=== PATIENT | female | born 1955 | race Caucasian/White ===

== ENCOUNTER 2017-06-27 10:55 | Day surgery (SDC) | payer BC, OTHER ==
[~2017-06-27] VITALS: Ht 162.6 cm; Wt 73.9 kg
[~2017-06-27 10:55] MED LIST: CALC500T49 PO; LEXA1TAB PO; PROBCAP4 PO; SIMV40TA2 PO; VITA200015 PO
[2017-06-27] MEDS ORDERED: LR 1,000 ML IV ONE (11:00)
[2017-06-27] MEDS ORDERED: dexameTHASONE 4 MG/ML 1ML VIAL (J1100) IV ONE (11:30)
[2017-06-27] MEDS ORDERED: AMPICILLIN SOD/SULBACTAM SOD 3 GM in D5W MINI-BAG PLUS 100 ML IV ONE (11:30)
[2017-06-27] MEDS ORDERED: MIDAZOLAM INJ 2 MG/2 ML VIAL (J2250) As Ordered ONE (13:53)
[2017-06-27] MEDS ORDERED: LIDOCAINE 2% W/ EPINEPHRINE 1.7 ML DENTAL INJ As Ordered ONE (13:53)
[2017-06-27] MEDS ORDERED: fentaNYL 100 MCG/2 ML INJECTION (J3010) As Ordered ONE (13:53)
[2017-06-27] MEDS ORDERED: CHLORHEXIDINE GLUCONATE 0.12 % 15ML UDC (PERIDEX ORAL RINSE) As Ordered ONE (14:45)
[2017-06-27] MEDS ORDERED: PHENYLephrine HCL 500 MCG/5 ML (100MCG/ML) SYRINGE (J2370) As Ordered ONE (14:48)
[2017-06-27] MEDS ORDERED: PROPOFOL 200 MG/20 ML VIAL As Ordered ONE (15:10)
[2017-06-27] MEDS ORDERED: LIDOCAINE 2% INJ 100 MG/5 ML SDV (FOR ANES.) As Ordered ONE (15:10)
[2017-06-27] MEDS ORDERED: ROCURONIUM BROMIDE 50 MG/5 ML VIAL As Ordered ONE (15:10)
[2017-06-27] MEDS ORDERED: fentaNYL 100 MCG/2 ML INJECTION (J3010) IV PRN (15:45)
[2017-06-27] MEDS ORDERED: ONDANSETRON 4MG/2ML VIAL (J2405) IV PRN (15:45)
[2017-06-27] MEDS ORDERED: LR 1,000 ML IV SCH (15:45)
[2017-06-27 17:15] VITALS: BP 125/59
--- NOTE | 2017-06-28 07:06 | RO ---
DATE OF PROCEDURE: 06/27/2017 PREPROCEDURE DIAGNOSES: 1. Left chronic maxillary sinusitis. 2. Chronic left oral antral fistula. POSTPROCEDURE DIAGNOSES: Status post: 1. Left chronic maxillary sinusitis. 2. Chronic left oral antral fistula. PROCEDURE: Closure of left chronic oral antral fistula with buccal fat pad advancement and buccal gingival flap advancement. SURGEON: Vaughn Heath DMD, MD ACCOUNTING RECRUITER: ANESTHESIA: General endotracheal anesthesia via nasal ray. SPECIMEN: None. ESTIMATED BLOOD LOSS: INDICATIONS FOR SURGERY: Annia is a pleasant 62-year-old female who was referred to my office for evaluation and management of a chronic left oral antral fistula. She reports that in 2013, she had a left maxillary sinus augmentation performed at an outside dentist. This procedure, however, was not successful as the graft was infected and she was left with a chronic fistula in that area. She reports that this fistula had been attempted to be closed twice in the past by an ear, nose and throat physician in [place] with no success. She does report chronic nasal reflux with chronic tenderness to palpation around the fistula and in the mid cheek area. The nasal reflexes mostly with fluids. Upon clinical examination, the patient does have a 7 mm diameter round fistula in the mid vestibule and the left edentulous upper left quadrant of the maxilla. This fistulous track leads directly into the sinus with mucous that is noted into the maxillary sinus upon examination. A CT scan was performed which shows a 1 cm x 8 mm bony defect in the left maxillary wall area and what would be in the tooth site #14 and 15 and she does have thickened mucosa in that area in that left maxillary sinus. All the risks, benefits and alternatives were explained to the patient as far as the procedure goes including postoperative infection, failure and wound breakdown of the flap advancement requiring further treatment and procedures in the future. The patient is well aware of this and elects to have the procedure performed at the operating room at [facility]. A complete history and physical was performed as well as an informed consent which was signed by myself with the patient. DESCRIPTION OF PROCEDURE: On 06/27/2017, the patient presented to preop holding area. Any last minute questions were addressed. At that point, the patient was then taken back to the operating room. She was laid supine on the operating room table. Ulnar nerve protectors were placed. Noninvasive cardiac monitors were applied. At that point, the patient was intubated with a nasal ray which was then secured to the patient's forehead. Preoperative antibiotics and steroids were given in the form of the IV. At this point, the patient was then prepped and draped in the usual sterile fashion. A time-out procedure was performed to identify the patient, the procedure and any other precautions. At this point, a moist throat pack was inserted in the patient's oropharynx followed by the administration of 2% lidocaine with 1:100,000 epinephrine as local infiltration around the fistula. A 15 blade was then used to make a crestal incision from the tuberosity with a distal release incision over the edentulous crest removing proximally and distally and extended towards the most distal tooth which is tooth #11. The incision was then carried into the sulcus of tooth #11 with an anterior release oblique incision into the vestibule. At this point, a fresh 15 blade was then used to make an elliptical incision around the fistula and was made all the way down to the sinus proper. This fistulous track was then curetted out with a curette and cleaned out and the rest of the flap was then subperiosteally dissected and carefully so not to tear the flap. At this point, the medial and the lateral buttresses were fully exposed of the maxilla. The bony defect was consistent with the CT scan defect that was noted which was about 10 x 8 mm in diameter. A very thick sinus membrane was noted circumferentially around the bony defect and this was debrided with multiple curettes and also copious irrigation of saline into the bony defect with abundant suctioning. At this point, once as much debridement as possible was performed of the thickened sinus membranes, the flap was scored in the periosteal area to be able to advance the gingival flap over the bony defect and a 15 blade was then used to make an incision subperiosteally in the posterior maxilla to release the fat pad which was fully visualized and advanced into the defect and sutured in place to the palatal mucosa with #3-0 Vicryl sutures. At this point, once the fat pad was secured to the palatal mucosa to obliterate the bony defect, the gingival flap was then advanced over the fat pad and the buccal gingiva flap was then closed primarily in a tension-free manner with multiple #3-0 Vicryl sutures to the palatal counterpart of the wound. At this point, once primary closure was obtained, the oral cavity was irrigated and suctioned. The throat pack was removed and the patient was then extubated without any incident and taken back to the postanesthesia care unit. To note, there was a right nostril nose bleed with roughly 100 mL of blood loss. ESTIMATED BLOOD LOSS: About 30 mL. DRAINS: There were no drains placed. COMPLICATIONS: None.
== END 2017-06-27 17:16 | disposition home or self-care (01) ==
LOC: M SDC 10:55
PROVIDERS: ATTEND Dentist
DX: J32.0 Chronic maxillary sinusitis (principal); J34.89 Other specified disorders of nose and nasal sinuses; E78.00 Pure hypercholesterolemia, unspecified; F41.9 Anxiety disorder, unspecified; T88.4XXD Failed or difficult intubation, subsequent encounter; Z87.891 Personal history of nicotine dependence; Z79.899 Other long term (current) drug therapy; Z90.710 Acquired absence of both cervix and uterus; Z85.118 Personal history of other malignant neoplasm of bronchus and lung
CPT/HCPCS: 30580; J1100; J2250; J2370; J3010